=== PATIENT | male | born 1995 ===

== ENCOUNTER 2023-07-15 16:40 | Emergency (ER) | payer OTHER ==
[2023-07-15] MEDS ORDERED: NA CHLORIDE 0.9% 2,000 ML ONE (17:06)
[2023-07-15 17:08] LABS: Absolute Lymphocytes (CBC) 1.5 K/uL (0.7-4.9); Hematocrit 39.3 % (39.6-49.0); Lymphocytes % 42.8 % (15.3-44.8); MCV 89.2 fL (80-100); MPV 7.5 fL (7.6-11.3); Platelets 145 thou/uL (152-406); RBC Red Blood Cell Count 4.41 M/uL (4.33-5.43)
--- NOTE | 2023-07-15 17:15 | RAD REPORT ---
EXAM DESCRIPTION: CT - Head Brain Wo Cont - 07/15/2023 5:05 pm CLINICAL HISTORY: HEADACHE Headache, drowsiness COMPARISON: No comparisons TECHNIQUE: All CT scans are performed using dose optimization technique as appropriate and may inclu de automated exposure control or mA/KV adjustment according to patient size. FINDINGS: No intracranial hemorrhage, hydrocephalus or extra-axial fluid collection.No areas of brai n edema or evidence of midline shift. The paranasal sinuses and mastoids are clear. The calvarium is intact. IMPRESSION: No acute intracranial abnormality.
[2023-07-15 17:25] LABS: ALT/SGPT 20 U/L (16-61); AST/SGOT 13 U/L (15-37); Albumin 3.5 g/dL (3.4-5.0); Alkaline Phosphatase 41 U/L (45-117); BUN Blood Urea Nitrogen 12 mg/dL (7-18); Bicarbonate 32 mEq/L (21-32); Bilirubin Total 0.2 mg/dL (0.2-1.0); Creatine Phosphokinase 157 U/L (39-308); Glomerular Filtration Rate 67 ml/min (=/>90); Glucose Level 72 mg/dL (74-106); Lipase 31 U/L (13-75); Magnesium 1.9 mg/dL (1.6-2.4); NT PRO-BNP 22 pg/mL (<125); Potassium 3.7 mEq/L (3.5-5.1); Protein, Total 6.9 g/dL (6.4-8.2); Sodium Level 141 mEq/L (136-145); Troponin High Sensitivity 28.7 pg/mL (<58.9)
[2023-07-15 17:32] LABS: Bilirubin Direct < 0.1 mg/dL (0-0.2)
[2023-07-15 17:33] LABS: Bilirubin Indirect, Calculated ND mg/dL (0.2-0.8)
--- NOTE | 2023-07-15 17:36 | RAD REPORT ---
EXAM DESCRIPTION: RAD - Chest Single View - 07/15/2023 5:30 pm CLINICAL HISTORY: COUGH Chest pain. COMPARISON: No comparisons FINDINGS: Portable technique limits examination quality. The lungs are grossly clear. The heart is normal in size. No displaced fractures. IMPRESSION: No acute intrathoracic process suspected.
[2023-07-15] MEDS ORDERED: NA CHLORIDE 0.9% 1,000 ML ONE (18:27)
--- NOTE | 2023-07-15 18:34 | ER ---
Nurse's Notes [facility] [place] Name: Galen Farr Age: 28 yrs Sex: Male : 1995 Arrival Date: 07/15/2023 Time: 16:40 Bed 3 Private MD: Diagnosis: Dehydration;Heat exhaustion, unspecified;Heat syncope;Hypotension, unspecified-RESOLVED Presentation: 07/15 16:45 Chief complaint: EMS states: Toned out for possible seizure/AMS, on scene pt lethargic, hb oriented x 4, actively vomiting, BP 85/56, HR 78, T 97.7, BGL 83, temp in building >100 degrees. NS 1L infusing to 20g LFA upon arrival. From [facility], officers at bedside. Coronavirus screen: At this time, the client does not indicate any symptoms associated with coronavirus-19. Ebola Screen: No symptoms or risks identified at this time. Initial Sepsis Screen: Does the patient meet any 2 criteria? No. Patient's initial sepsis screen is negative. Does the patient have a suspected source of infection? No. Patient's initial sepsis screen is negative. Risk Assessment: Do you want to hurt yourself or someone else? Patient reports no desire to harm self or others. Onset of symptoms was July 15, 2023. 16:45 Method Of Arrival: EMS: [facility] 16:45 Acuity: JASMINA 2 hb Triage Assessment: 16:51 General: Appears in no apparent distress. Behavior is calm, cooperative. Pain: Denies hb pain. EENT: No signs and/or symptoms were reported regarding the EENT system. Neuro: Level of Consciousness is obeys commands, lethargic, Oriented to person, place, time, situation. Cardiovascular: Patient's skin is warm and dry. Respiratory: Respiratory effort is even, unlabored, Respiratory pattern is regular, agonal. GI: No signs and/or symptoms were reported involving the gastrointestinal system. : No signs and/or symptoms were reported regarding the genitourinary system. Derm: Skin is pink, warm \T\ dry. Musculoskeletal: No signs and/or symptoms reported regarding the musculoskeletal system. Historical: - Allergies: 16:51 No Known Allergies; hb - Home Meds: 16:51 Abilify oral [Active]; hb - PMHx: 16:51 Bipolar disorder; hb - PSHx: 16:51 None; hb - Immunization history:: Adult Immunizations up to date. - Social history:: Smoking status: Patient denies any tobacco usage or history of. Screenin:52 [facility] ED Fall Risk Assessment (Adult) Score/Fall Risk Level 0 - 2 = Low Risk hb Oriented to surroundings, Maintained a safe environment, Educated pt \T\ family on fall prevention, incl call for assistance when getting out of bed. Abuse screen: Denies threats or abuse. Denies injuries from another. Nutritional screening: No deficits noted. Tuberculosis screening: No symptoms or risk factors identified. Assessment: 16:52 General: See triage assessment. hb 17:03 Reassessment: Pt to CT via stretcher . aa5 17:53 Reassessment: Patient appears in no apparent distress at this time. Patient and/or hb family updated on plan of care and expected duration. Pain level reassessed. Patient is alert, oriented x 3, equal unlabored respirations, skin warm/dry/pink. 18:27 Reassessment: Patient appears in no apparent distress at this time. Patient and/or hb family updated on plan of care and expected duration. Pain level reassessed. Patient is alert, oriented x 3, equal unlabored respirations, skin warm/dry/pink. 19:19 Reassessment: Patient and/or family updated on plan of care and expected duration. Pain vc1 level reassessed. Patient is alert, oriented x 3, equal unlabored respirations, skin warm/dry/pink. 19:46 Reassessment: Patient and/or family updated on plan of care and expected duration. Pain vc1 level reassessed. Patient is alert, oriented x 3, equal unlabored respirations, skin warm/dry/pink. Patient states feeling better. Patient states symptoms have improved. Vital Signs: 16:45 BP 84 / 44; Pulse 65; Resp 14; Temp 98.4(O); Pulse Ox 98% on R/A; Weight 83.91 kg; hb Height 6 ft. 0 in. ; Pain 0/10; 17:53 BP 92 / 59; Pulse 78; Resp 14; Pulse Ox 99% on R/A; hb 18:27 BP 104 / 67; Pulse 75; Resp 17; Pulse Ox 100% on R/A; Pain 0/10; hb 19:19 BP 103 / 60; Pulse 73; Resp 17; Pulse Ox 98% ; vc1 19:28 BP 92 / 56 Supine; Pulse 62; vc1 19:30 BP 92 / 61 Sitting; Pulse 63; vc1 19:32 BP 103 / 64; Pulse 64; vc1 16:45 Body Mass Index 25.09 (83.91 kg, 182.88 cm) hb 16:45 Pain Scale: Adult hb 18:27 Pain Scale: Adult hb ED Course: 16:44 Patient arrived in ED. hb 16:45 Richard Yuan MD is Attending Physician. noel 16:50 Triage completed. hb 16:51 Arm band placed on. hb 16:52 Patient has correct armband on for positive identification. Provided Education on: . hb 16:55 Initial lab(s) drawn, by me, sent to lab. Inserted saline lock: 20 gauge in right aa5 forearm, using aseptic technique. Blood collected. 17:07 CT Head Brain wo Cont In Process Unspecified. EDMS 17:25 Beatris Lau, RN is Primary Nurse. hb 17:32 XRAY Chest (1 view) In Process Unspecified. EDMS 19:47 No provider procedures requiring assistance completed. IV discontinued, intact, vc1 bleeding controlled, No redness/swelling at site. Pressure dressing applied. Administered Medications: 16:58 Drug: NS 0.9% IV 1000 ml Route: IV; Rate: 1 bolus; Site: left forearm; hb 18:27 Follow up: Response: No adverse reaction; IV Status: Completed infusion; IV Intake: hb 1000ml 16:59 Drug: NS 0.9% IV 1000 ml Route: IV; Rate: 1 bolus; Site: right forearm; hb 18:28 Follow up: Response: No adverse reaction; IV Status: Completed infusion; IV Intake: hb 1000ml 18:27 Drug: NS 0.9% IV 1000 ml Route: IV; Rate: 1 bolus; Site: right forearm; hb Medication: 16:52 VIS not applicable for this client. hb Intake: 18:27 IV: 1000ml; Total: 1000ml. hb 18:28 IV: 1000ml; Total: 2000ml. hb Outcome: 18:33 Discharge ordered by . noel 19:47 Discharged to with alf guards vc1 19:47 Condition: improved 19:47 Discharge instructions given to patient, guards Instructed on discharge instructions, follow up and referral plans. Demonstrated understanding of instructions, follow-up care. 19:51 Patient left the ED. vc1 Signatures: Dispatcher [employer] EDMS Richard Yuan MD MD cha Calderon, Audri RN RN [email or web address] Beatris Lau RN RN Tayler Zepeda RN RN vc1 Corrections: (The following items were deleted from the chart) 16:51 16:51 Home Meds: None; hb hb 16:54 16:45 Chief complaint: EMS states: Toned out for possible seizure/AMS, on scene pt hb lethargic, oriented x 4, actively vomiting, BP 85/56, HR 78, T 97.7, BGL 83, temp in building >100 degrees. NS 1L infusing to 20g LFA upon arrival. hb
--- NOTE | 2023-07-15 18:34 | EDPHYS ---
Physician Documentation [facility] Name: Galen Farr Age: 28 yrs Sex: Male : 1995 Arrival Date: 07/15/2023 Time: 16:40 Bed 3 Private MD: ED Physician Richard Yuan HPI: 07/15 17:05 This 28 yrs old Male presents to ER via EMS with complaints of IN HEAT, HAD noel SEIZURE, COLLAPSED. Historical: - Allergies: 16:51 No Known Allergies; hb - Home Meds: 16:51 Abilify oral [Active]; hb - PMHx: 16:51 Bipolar disorder; hb - PSHx: 16:51 None; hb - Immunization history:: Adult Immunizations up to date. - Social history:: Smoking status: Patient denies any tobacco usage or history of. ROS: 17:10 Constitutional: Negative for fever, chills, and weight loss, Eyes: Negative for injury, noel pain, redness, and discharge, ENT: Negative for injury, pain, and discharge, Neck: Negative for injury, pain, and swelling, Cardiovascular: Negative for chest pain, palpitations, and edema, Respiratory: Negative for shortness of breath, cough, wheezing, and pleuritic chest pain, Abdomen/GI: Negative for abdominal pain, nausea, vomiting, diarrhea, and constipation, Back: Negative for injury and pain, : Negative for injury, bleeding, discharge, and swelling, MS/Extremity: Negative for injury and deformity, Skin: Negative for injury, rash, and discoloration, Psych: Negative for depression, anxiety, suicide ideation, homicidal ideation, and hallucinations, Allergy/Immunology: Negative for hives, rash, and allergies, Endocrine: Negative for neck swelling, polydipsia, polyuria, polyphagia, and marked weight changes, Hematologic/Lymphatic: Negative for swollen nodes, abnormal bleeding, and unusual bruising. 17:10 Neuro: Positive for dizziness, syncope, weakness. Exam: 17:10 Constitutional: This is a well developed, well nourished patient who is awake, alert, noel and in no acute distress. Head/Face: Normocephalic, atraumatic. Eyes: Pupils equal round and reactive to light, extra-ocular motions intact. Lids and lashes normal. Conjunctiva and sclera are non-icteric and not injected. Cornea within normal limits. Periorbital areas with no swelling, redness, or edema. ENT: Nares patent. No nasal discharge, no septal abnormalities noted. Tympanic membranes are normal and external auditory canals are clear. Oropharynx with no redness, swelling, or masses, exudates, or evidence of obstruction, uvula midline. Mucous membranes moist. Neck: Trachea midline, no thyromegaly or masses palpated, and no cervical lymphadenopathy. Supple, full range of motion without nuchal rigidity, or vertebral point tenderness. No Meningismus. Chest/axilla: Normal chest wall appearance and motion. Nontender with no deformity. No lesions are appreciated. Cardiovascular: Regular rate and rhythm with a normal S1 and S2. No gallops, murmurs, or rubs. Normal PMI, no JVD. No pulse deficits. Respiratory: Lungs have equal breath sounds bilaterally, clear to auscultation and percussion. No rales, rhonchi or wheezes noted. No increased work of breathing, no retractions or nasal flaring. Abdomen/GI: Soft, non-tender, with normal bowel sounds. No distension or tympany. No guarding or rebound. No evidence of tenderness throughout. Back: No spinal tenderness. No costovertebral tenderness. Full range of motion. Male : Normal genitalia with no discharge or lesions. Skin: Warm, dry with normal turgor. Normal color with no rashes, no lesions, and no evidence of cellulitis. MS/ Extremity: Pulses equal, no cyanosis. Neurovascular intact. Full, normal range of motion. Neuro: Awake and alert, GCS 15, oriented to person, place, time, and situation. Cranial nerves II-XII grossly intact. Motor strength 5/5 in all extremities. Sensory grossly intact. Cerebellar exam normal. Normal gait. Psych: Awake, alert, with orientation to person, place and time. Behavior, mood, and affect are within normal limits. 17:47 ECG was reviewed by the Attending Physician. [facility] 17:48 ECG was reviewed by the Attending Physician. [facility] Vital Signs: 16:45 BP 84 / 44; Pulse 65; Resp 14; Temp 98.4(O); Pulse Ox 98% on R/A; Weight 83.91 kg; hb Height 6 ft. 0 in. ; Pain 0/10; 17:53 BP 92 / 59; Pulse 78; Resp 14; Pulse Ox 99% on R/A; hb 18:27 BP 104 / 67; Pulse 75; Resp 17; Pulse Ox 100% on R/A; Pain 0/10; hb 19:19 BP 103 / 60; Pulse 73; Resp 17; Pulse Ox 98% ; vc1 19:28 BP 92 / 56 Supine; Pulse 62; vc1 19:30 BP 92 / 61 Sitting; Pulse 63; vc1 19:32 BP 103 / 64; Pulse 64; vc1 16:45 Body Mass Index 25.09 (83.91 kg, 182.88 cm) hb 16:45 Pain Scale: Adult hb 18:27 Pain Scale: Adult hb MDM: 16:45 Patient medically screened. noel 17:11 Differential Diagnosis altered mental status, sepsis. Differential Diagnosis: CVA, noel electrolyte abnormality, alcohol intoxication, hypoglycemia, intracranial bleed, pneumonia, sepsis. Data reviewed: vital signs, nurses notes, EMS record, lab test result(s), EKG, radiologic studies, CT scan, plain films. Consideration of Admission/Observation Escalation of care including admission/observation considered. I considered the following discharge prescriptions or medication management in the emergency department Medications were administered in the Emergency Department. See MAR. Test considered but Not performed: Ultrasound NO ECHO 2 D. Care significantly affected by the following chronic conditions: BIPOLAR DO. Counseling: I had a detailed discussion with the patient and/or guardian regarding the historical points, exam findings, and any diagnostic results supporting the discharge/admit diagnosis, lab results, radiology results, the need for outpatient follow up, for definitive care, a family practitioner, an sack lifter. 07/15 16:47 Order name: Basic Metabolic Panel; Complete Time: 18:11 [facility] 07/15 16:47 Order name: CBC with Diff; Complete Time: 18:11 [facility] 07/15 16:47 Order name: LFT's; Complete Time: 18:11 [facility] 07/15 16:47 Order name: Magnesium; Complete Time: 18:11 [facility] 07/15 16:47 Order name: NT PRO-BNP; Complete Time: 18:11 [facility] 07/15 16:47 Order name: Troponin HS; Complete Time: 18:11 [facility] 07/15 16:47 Order name: CPK; Complete Time: 18:11 [facility] 07/15 16:47 Order name: Lipase; Complete Time: 18:11 [facility] 07/15 16:55 Order name: Asprin; Complete Time: 18:11 [facility] 07/15 16:55 Order name: Tylenol Level; Complete Time: 18:11 [facility] 07/15 16:55 Order name: Alcohol Level; Complete Time: 18:11 [facility] 07/15 18:58 Order name: Glucose, Ancillary Testing EDMS 07/15 16:47 Order name: XRAY Chest (1 view); Complete Time: 18:11 [facility] 07/15 16:47 Order name: CT Head Brain wo Cont; Complete Time: 18:11 [facility] 07/15 16:47 Order name: EKG; Complete Time: 16:48 [facility] 07/15 18:11 Order name: Diet Regular; Complete Time: 18:12 [facility] 07/15 16:47 Order name: Cardiac monitoring; Complete Time: 16:49 [facility] 07/15 16:47 Order name: EKG - Nurse/Tech; Complete Time: 17:32 [facility] 07/15 16:47 Order name: IV Saline Lock; Complete Time: 16:49 [facility] 07/15 16:47 Order name: Labs collected and sent; Complete Time: 17:02 [facility] 07/15 16:47 Order name: O2 Per Protocol; Complete Time: 16:49 [facility] 07/15 16:47 Order name: O2 Sat Monitoring; Complete Time: 16:49 [facility] 07/15 16:55 Order name: PO challenge: JUICE; Complete Time: 18:27 [facility] 07/15 18:33 Order name: Blood Glucose Level; Complete Time: 18:46 [facility] 07/15 18:38 Order name: Orthostatics; Complete Time: 19:46 [facility] EC:48 Rate is 71 beats/min. Rhythm is regular. QRS Sula is Normal. SC interval is shortened noel at 102 msec. QRS interval is normal. QT interval is normal. No Q waves. T waves are Normal. No ST changes noted. Clinical impression: NSR w/ Non-specific ST/T Changes and No evidence of ischemia. Interpreted by me. Reviewed by me. Administered Medications: 16:58 Drug: NS 0.9% IV 1000 ml Route: IV; Rate: 1 bolus; Site: left forearm; hb 18:27 Follow up: Response: No adverse reaction; IV Status: Completed infusion; IV Intake: hb 1000ml 16:59 Drug: NS 0.9% IV 1000 ml Route: IV; Rate: 1 bolus; Site: right forearm; hb 18:28 Follow up: Response: No adverse reaction; IV Status: Completed infusion; IV Intake: hb 1000ml 18:27 Drug: NS 0.9% IV 1000 ml Route: IV; Rate: 1 bolus; Site: right forearm; hb Disposition Summary: 07/15/23 18:33 Discharge Ordered Location: Home noel Problem: new noel Symptoms: have improved noel Condition: Stable noel Diagnosis - Dehydration noel - Heat exhaustion, unspecified noel - Heat syncope noel - Hypotension, unspecified - RESOLVED noel Followup: noel - With: Private Physician - When: 2 - 3 days - Reason: Recheck today's complaints, Continuance of care, Re-evaluation by your physician Discharge Instructions: - Discharge Summary Sheet noel - Dehydration, Adult noel - Hypotension noel - Near-Syncope, [id number] noel - Heat Exhaustion noel - Hypotension, [id number] noel - Dehydration, Adult, [id number] noel - Rehydration, Adult noel - Preventing Heat Exhaustion, Adult noel - Heat Stroke noel Forms: - Medication Reconciliation Form noel - Thank You Letter noel - Antibiotic Education noel - Prescription Opioid Use noel - Patient Portal Instructions noel - Leadership Thank You Letter noel Signatures: Dispatcher [employer] EDRichard Leslie MD MD cha Baxter, Heather RN RN hb Corrections: (The following items were deleted from the chart) 16:51 16:51 Home Meds: None; hb hb 17:49 17:47 Rate is 71 beats/min. Rhythm is regular. QRS Sula is Normal. SC interval is noel normal. QRS interval is normal. QT interval is normal. No Q waves. T waves are Normal. No ST changes noted. Clinical impression: Normal ECG and No evidence of ischemia. Interpreted by me. Reviewed by me. noel
[2023-07-15 20:10] VITALS: TEMP 98.4
[2023-07-15 20:16] VITALS: O2SAT 98
[2023-07-15 20:20] VITALS: BP 103/64
--- NOTE | 2023-07-16 12:38 | EKG ---
Test Date: 2023-07-15 Test Time: 17:29:46 Glass Beveller: HA MEASUREMENT RESULTS: Intervals: Rate: 71 VT: 102 QRSD: 98 QT: 426 QTc: 462 Benedict: P: 77 VT: 102 QRS: 76 T: 61 INTERPRETIVE STATEMENTS: Sinus rhythm with short VT Otherwise normal ECG No previous ECG available for comparison Electronically Signed On 07-16-23 12:36:57 CDT by Michele Reis
== END 2023-07-15 19:51 | disposition home or self-care (01) ==
LOC: ER 16:40
DX: E86.0 Dehydration (principal); T67.5XXA Heat exhaustion, unspecified, initial encounter; F31.9 Bipolar disorder, unspecified
CPT/HCPCS: 36415; 70450; 71045; 80048; 80076; 80143; 80179; 82077; 82550; 82947; 83690; 83735; 83880; 84484; 85025; 93005; J7030